=== PATIENT | female | born 2000 | race Caucasian/White ===

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

== ENCOUNTER → 2022-01-07 | Outpatient (CLI) | payer BC ==
[~2022-01-07] MED LIST changes: +BARIUM for suspension 96% w/w (Vanilla Silq Medium Density) PO ONE; +BARIUM for suspension 98% w/w (Vanilla Silq High Density) PO ONE
--- NOTE | 2022-01-07 12:45 | Diagnostic Imaging Report ---
INDICATION: Status post hiatal hernia repair in May 2021. Patient reports difficulty eating as well as a 60 pound weight loss. TECHNIQUE: The patient ingested effervescent crystals as well as thin and thick barium and imaging over the esophagus was performed in multiple obliquities. A total of 1.3 minutes of fluoroscopic time was utilized. 40 images were obtained. FINDINGS: The preliminary radiograph over the chest is unremarkable. The esophagus has a smooth contour. No mass or stricture is identified. There appear to be post operative changes from hiatal hernia repair. Contrast passes freely into the stomach without evidence of obstruction. No gastroesophageal reflux was demonstrated. The stomach is unremarkable. IMPRESSION: Post operative changes. The study is otherwise unremarkable. Dictated by: Dictated on workstation # [id number]
== END ==
LOC: RAD 11:00
PROVIDERS: ATTEND Pediatrics
DX: R13.14 Dysphagia, pharyngoesophageal phase (principal); R63.30 Feeding difficulties, unspecified; R63.4 Abnormal weight loss; Z98.890 Other specified postprocedural states
CPT/HCPCS: 74220

== ENCOUNTER → 2022-01-25 | Outpatient (CLI) | payer BC ==
[~2022-01-25] MED LIST changes: -BARIUM for suspension 96% w/w (Vanilla Silq Medium Density) PO ONE; -BARIUM for suspension 98% w/w (Vanilla Silq High Density) PO ONE
--- NOTE | 2022-01-25 11:48 | Diagnostic Imaging Report ---
INDICATION: Nausea and vomiting. FINDINGS: 1.04 mCi tech 99M cervical colloid was mixed with eggs and taken orally. FINDINGS: There is good uptake noted in the stomach on immediate films. Gastric emptying shows 44% at 1 hour, 81% at 2 hours, 86% at 3 hours and 90% at 4 hours. Linear fit T1 half is 113 minutes. IMPRESSION: Gastric emptying study is considered within normal range though is at the higher limit of time for emptying. Dictated by: Dictated on workstation # [id number]
== END ==
LOC: CARD 07:00
PROVIDERS: ATTEND Pediatrics
DX: R11.2 Nausea with vomiting, unspecified (principal)
CPT/HCPCS: 78264; A9541

== ENCOUNTER 2022-02-14 17:40 | Emergency (ER) | payer BC ==
[~2022-02-14] VITALS: Ht 175.3 cm; Wt 52.2 kg
--- NOTE | 2022-02-14 18:13 | ED Chest Pain ---
General Chief Complaint: Cardiac/General Problems Stated Complaint: CHEST PAIN Nursing Triage Note: PT AMB TO [facility] 10 WITH COMPLAINT OF HEART POUNDING. STATES HAD THIS HAPPEN LAST WEEK AND WENT TO [facility]. IS SCHEDULED FOR HEART MONITOR February. STATES SHE WAS TOLD SHE HAD ECTOPIC HEARTBEAT. PT IS VERY ANXIOUS AND UPSET. STATES SHE WAS AT WORK WHEN THEY HAPPENED. STATES SHE FEELS BRAIN FOG. Source: patient Exam Limitations: no limitations History of Present Illness Date Seen by Provider: Feb 14, 2022 Time Seen by Provider: 18:10 Initial Comments Patient is a 21-year-old female who presents ED with chest pressure and heart palpitations. Symptoms over the past 1 to 2 weeks. Chest pressure is intermittent but feels this constant heart skipping. Described as skipping beats. She states her heart rate races to over 100 and then as low as 40 bpm. She went to [facility] last week and states they were concerned for ectopic hear beat and is scheduled for a Holter monitor on the . She states she feels nauseous.vomiting. Shortness of breath with the symptoms. History of ADHD and has been intermittently taking her clonidine. She states her blood pressure has been running low. Symptoms became worse today while working. Denies history of thyroid issues. No excessive energy drink or caffeine use. Denies any drug use or alcohol use. History of hiatal hernia surgery. Denies fever, chills, headache, dizziness, visual changes. Patient tearful here in the ED. Allergies and Home Medications Allergies Coded Allergies: No Known Drug Allergies (Verified , 10/15/21) Patient Home Medication List Home Medication List Reviewed: Yes Cephalexin (Cephalexin) 500 Mg Tablet, 500 MG PO BID Prescribed by: KELLY WATT on 02/14/222055 Clonidine HCl (Clonidine HCl) 0.1 Mg Tablet, 0.1 MG PO DAILY, (Reported) Entered as Reported by: MEÑO PINO on 11/13/20 115 Fluconazole (Diflucan) 150 Mg Tablet, 150 MG PO ONCE Prescribed by: KELLY WATT on 02/14/222055 Hydrocodone/Acetaminophen (Hydrocodon-Acetamin 7.5-325/15 ML) 15 Ml Solution, 1.5 TSP PO Q4H Prescribed by: CRISTELA CALVERT on 06/27/21 013 Norethindrone-E.estradiol-Iron (Taytulla 1 mg-20 Mcg Capsule) 1 Each Capsule, 1 EACH PO DAILY, (Reported) Entered as Reported by: MIKE VALDIVIA on 05/20/21 1036 Ondansetron (Ondansetron Odt) 8 Mg Tab.rapdis, 8 MG PO Q6H Prescribed by: CRISTELA CALVERT on 06/27/21 013 Pantoprazole Sodium (Protonix) 40 Mg Tablet.dr, 40 MG PO DAILY Prescribed by: MIRNA WHITE on 11/18/20 1132 Pantoprazole Sodium (Protonix) 40 Mg Granpkt.dr, 40 MG PO DAILY Prescribed by: CRISTELA CALVERT on 06/27/21 013 Sertraline HCl (Sertraline HCl) 100 Mg Tablet, 100 MG PO DAILY, (Reported) Entered as Reported by: MEÑO PINO on 11/13/20 1152 Sucralfate (Carafate) 1 Gm/10 Ml Oral.susp, 1 GM PO QIDACHS Prescribed by: CRISTELA CALVERT on 06/27/21 013 Tramadol HCl (Tramadol HCl) 50 Mg Tablet, 50-100 MG PO 4-6 PRN for PAIN-MODERATE (5-7) Prescribed by: TORRES MEADE on 05/28/21 1635 Review of Systems Review of Systems Constitutional: No chills, No diaphoresis, No malaise, No weakness EENTM: No Blurred Vision, No Eye Pain Respiratory: Denies Cough, Denies Orthopnea; Shortness of Air Cardiovascular: Chest Pain, Irregular Heart Rate Gastrointestinal: Denies Abdomen Distended, Denies Abdominal Pain, Denies Blood Streaked Stools, Denies Diarrhea, Denies Difficulty Swallowing; Nausea; Denies Poor Appetite, Denies Vomiting Genitourinary: Denies Burning, Denies Discharge, Denies Flank Pain, Denies Urgency Skin: No change in color, No change in hair/nails All Other Systems Reviewed Negative Unless Noted: Yes Past Cqueeto-Mxvebq-Zbivpa Hx Patient Social History Tobacco Use?: No Use of E-Cig and/or Vaping dev: No Substance use?: No Alcohol Use?: No Pt feels they are or have been: No Immunizations Up To Date Tetanus Booster (TDap): Less than 5yrs PED Vaccines UTD: Yes First/Initial COVID19 Vaccinat: JANUARY 2021 Second COVID19 Vaccination Rony: JANUARY 2021 Third COVID19 Vaccination Date: JANUARY 2021 Seasonal Allergies Seasonal Allergies: Yes Past Medical History Surgery/Hospitalization HX: SKULL SURGERY AT 6 MONTHS OF AGE--FOR PREMATURE CLOSURE OF FONTANELLESLAP ARJUN FUNDOPLICATION 05/27/[address] WHITE Surgeries: Yes (SKULL, DENTAL, FX ARM,LAP ARJUN) Abdominal, Neurological Respiratory: No Cardiac: No Neurological: No Female Reproductive Disorders: Endometriosis, Ovarian Cyst Genitourinary: No Gastrointestinal: Yes (N&V; LAP ARJUN 05/27/21) Gastroesophageal Reflux, Hiatal Hernia Musculoskeletal: No Endocrine: No HEENT: No Cancer: No Psychosocial: Yes ADD/ADHD, Anxiety, Depression Integumentary: No Blood Disorders: No Family Medical History Cardiovascular disease Diabetes mellitus Neoplasm No Pertinent Family Hx, Asthma, Heart Disease NONE Physical Exam Vital Signs Vital Signs - First Documented 02/14/22 17:41 Pulse 121 Resp 11 B/P (MAP) 119/86 (97) Pulse Ox 97 O2 Delivery Room Air Capillary Refill : Less Than 3 Seconds Height, Weight, BMI Height: 5'7.00" Weight: 165lbs. 8.0oz. 75.127341bp; 16.00 BMI Method:Stated General Appearance: No Apparent Distress, WD/WN HEENT: PERRL/EOMI, TMs Normal, Normal ENT Inspection, Pharynx Normal Neck: Full Range of Motion, Normal Inspection, Non Tender, Supple Respiratory: Chest Non Tender, Lungs Clear, Normal Breath Sounds, No Accessory Muscle Use Cardiovascular: Regular Rate, Rhythm, No Edema, No Gallop, No JVD, No Murmur Gastrointestinal: Normal Bowel Sounds, No Organomegaly, No Pulsatile Mass, Non Tender Extremity: Normal Capillary Refill, Normal Inspection, Normal Range of Motion, Non Tender Neurologic/Psychiatric: Alert, Oriented x3, No Motor/Sensory Deficits, Normal Mood/Affect Skin: Normal Color, Warm/Dry Progress/Results/Core Measures Results/Orders Lab Results Laboratory Tests Test 02/14/22 18:29 02/14/22 19:18 Range/Units White Blood Count 8.0 4.3-11.0 10^3/uL Red Blood Count 4.11 3.80-5.11 10^6/uL Hemoglobin 12.9 11.5-16.0 g/dL Hematocrit 38 35-52 % Mean Corpuscular Volume 93 80-99 fL Mean Corpuscular Hemoglobin 31 25-34 pg Mean Corpuscular Hemoglobin Concent 34 32-36 g/dL Red Cell Distribution Width 12.7 10.0-14.5 % Platelet Count 238 130-400 10^3/uL Mean Platelet Volume 10.0 9.0-12.2 fL Immature Granulocyte % (Auto) 0 % Neutrophils (%) (Auto) 56 42-75 % Lymphocytes (%) (Auto) 34 12-44 % Monocytes (%) (Auto) 8 0-12 % Eosinophils (%) (Auto) 2 0-10 % Basophils (%) (Auto) 0 0-10 % Neutrophils # (Auto) 4.5 1.8-7.8 10^3/uL Lymphocytes # (Auto) 2.7 1.0-4.0 10^3/uL Monocytes # (Auto) 0.7 0.0-1.0 10^3/uL Eosinophils # (Auto) 0.1 0.0-0.3 10^3/uL Basophils # (Auto) 0.0 0.0-0.1 10^3/uL Immature Granulocyte # (Auto) 0.0 0.0-0.1 10^3/uL D-Dimer <= 0.27 0.00-0.49 UG/ML Sodium Level 141 135-145 MMOL/L Potassium Level 3.9 3.6-5.0 MMOL/L Chloride Level 107 98-107 MMOL/L Carbon Dioxide Level 20 L 21-32 MMOL/L Anion Gap 14 5-14 MMOL/L Blood Urea Nitrogen 19 H 7-18 MG/DL Creatinine 0.81 0.60-1.30 MG/DL Estimat Glomerular Filtration Rate 107 BUN/Creatinine Ratio 23 Glucose Level 85 70-105 MG/DL Calcium Level 8.9 8.5-10.1 MG/DL Corrected Calcium 8.8 8.5-10.1 MG/DL Magnesium Level 1.8 1.6-2.4 MG/DL Total Bilirubin 0.3 0.1-1.0 MG/DL Aspartate Amino Transf (AST/SGOT) 18 5-34 U/L Alanine Aminotransferase (ALT/SGPT) 18 0-55 U/L Alkaline Phosphatase 49 40-136 U/L Troponin I < 0.028 <0.028 NG/ML B-Type Natriuretic Peptide < 10.0 <100.0 PG/ML Total Protein 6.5 6.4-8.2 GM/DL Albumin 4.1 3.2-4.5 GM/DL Lipase 89 H 8-78 U/L Thyroid Stimulating Hormone (TSH) 0.78 0.35-4.94 UIU/ML Urine Color YELLOW Urine Clarity CLOUDY Urine pH 5.5 5-9 Urine Specific [place] >=1.030 1.016-1.022 Urine Protein 2+ H NEGATIVE Urine Glucose (UA) NEGATIVE NEGATIVE Urine Ketones TRACE H NEGATIVE Urine Nitrite NEGATIVE NEGATIVE Urine Bilirubin NEGATIVE NEGATIVE Urine Urobilinogen 0.2 < = 1.0 MG/DL Urine Leukocyte Esterase NEGATIVE NEGATIVE Urine RBC (Auto) 3+ H NEGATIVE Urine RBC 5-10 H /HPF Urine WBC 2-5 /HPF Urine Squamous Epithelial Cells 5-10 /HPF Urine Crystals PRESENT H /LPF Urine Calcium Oxalate Crystals RARE H /LPF Urine Amorphous Sediment MOD GAIL URATES H /LPF Urine Bacteria MODERATE H /HPF Urine Casts PRESENT /LPF Urine Hyaline Casts 0-2 H /LPF Urine Mucus LARGE H /LPF Urine Yeast MODERATE H /HPF Urine Culture Indicated YES Urine Test NEGATIVE NEGATIVE Urine Opiates Screen NEGATIVE NEGATIVE Urine Oxycodone Screen NEGATIVE NEGATIVE Urine Methadone Screen NEGATIVE NEGATIVE Urine Propoxyphene Screen NEGATIVE NEGATIVE Urine Barbiturates Screen NEGATIVE NEGATIVE Ur Tricyclic Antidepressants Screen NEGATIVE NEGATIVE Urine Phencyclidine Screen NEGATIVE NEGATIVE Urine Amphetamines Screen NEGATIVE NEGATIVE Urine Methamphetamines Screen NEGATIVE NEGATIVE Urine Benzodiazepines Screen NEGATIVE NEGATIVE Urine Cocaine Screen NEGATIVE NEGATIVE Urine Cannabinoids Screen POSITIVE H NEGATIVE My Orders Orders - CHACHA HONG Hcg,Qualitative Urine (02/14/22 18:09) Cbc With Automated Diff (02/14/22 18:09) Comprehensive Metabolic Panel (02/14/22 18:09) Lipase (02/14/22 18:09) Magnesium (02/14/22 18:09) Fibrin Degradation Products (02/14/22 18:09) Chest 1 View, Ap/Pa Only (02/14/22 18:09) Troponin I [place] (02/14/22 18:09) Bnp [place] (02/14/22 18:09) Thyroid Stimulating Hormone (02/14/22 18:10) Drug Screen Stat (Urine) (02/14/22 18:22) Vital Signs/I&O 02/14/22 02/14/22 17:41 21:10 Pulse 121 62 Resp 11 14 B/P (MAP) 119/86 (97) 108/66 Pulse Ox 97 98 O2 Delivery Room Air Room Air Blood Pressure Mean: 97 Comment Sinus rhythm, ST elevation probable normal early repolarization pattern, 99 bpm, QRS duration 91 MS, QTc 446 MS Departure Communication (Admissions) Patient EKG 99 bpm. EKG concerning for repolarization abnormality. Chest pressure with heart palpitations. She states heart palpitation is what she notices with this chest pressure. She feels like her heart is skipping a beat. Symptoms over the past 1 to 2 weeks. No family history of sudden cardiac . No murmur noted. history of hiatal hernia with complications. According to mother patient has been having 70 pound weight loss over the past 7 months. Increased stress vwith depression accorind to mother. Patient lab work was otherwise reassuring. Negative D-dimer and TSH. She denies excessive energy use alcohol use or drug use. Patient Was positive for marijuana. Chest x-ray was negative for pneumonia, pneumothorax. She has no upper abdominal tenderness. Slight elevated lipase. According mother mother's concern for her weight changes. Currently being managed by her primary care physician for this. Had a recent upper GI exam that was unremarkable according to mother. Trying to get scheduled to follow-up with [facility]. Reports stretching of the esophagus or reversal . Concerning for her weight changes which could be contributing to her symptoms. Concern for her eating habits and current mental state. This may be contributing to her symptoms. She denies vomiting with eating. Will provide outpatient order for Holter monitor for the heart palpitations. Potential ectopic beat versus proximal SVT. She states her heart feels like it is jumping. Walking heart rate was 110 with sinus rhythm. No abnormal heart rhythm here while on the monitor. No A. fib, a flutter. No known cardiac history. Discussed these results with father as well as mother. If any worsening symptoms I strongly recommend return back to ED for further evaluation. Impression Primary Impression: Chest pain Additional Impression: Heart palpitations Disposition: 01 HOME, SELF-CARE Condition: Stable Departure-Patient Inst. Referrals: BIGG MCKENNA MD, ROYLAN J MD (PCP/Family) Primary Care Physician Patient Instructions: Palpitations Scripts Fluconazole (Diflucan) 150 Mg Tablet 150 MG PO ONCE, #1 TAB Prov: CHACHA HONG 02/14/22 Cephalexin (Cephalexin) 500 Mg Tablet 500 MG PO BID for 7 Days, #14 TAB Prov: CHACHA HONG 02/14/22 Work/School Note: Work Release Form Date Seen in the Emergency Department: Feb 14, 2022 Return to Work: Feb 18, 2022 CHACHA HONG Feb 14, 2022 18:13
[2022-02-14 18:36] LABS: BASOPHILS % (AUTO) 0 % (0-10); EOSINOPHILS # (AUTO) 0.1 10^3/uL (0.0-0.3); EOSINOPHILS % (AUTO) 2 % (0-10); HEMATOCRIT 38 % (35-52); HEMOGLOBIN 12.9 g/dL (11.5-16.0); LYMPHOCYTES # (AUTO) 2.7 10^3/uL (1.0-4.0); LYMPHOCYTES % (AUTO) 34 % (12-44); MEAN CORPUSCULAR HEMOGLOBIN 31 pg (25-34); MEAN CORPUSCULAR HGB CONC 34 g/dL (32-36); MEAN CORPUSCULAR VOLUME 93 fL (80-99); MONOCYTES # (AUTO) 0.7 10^3/uL (0.0-1.0); MONOCYTES % (AUTO) 8 % (0-12); NEUTROPHILS # (AUTO) 4.5 10^3/uL (1.8-7.8); NEUTROPHILS % (AUTO) 56 % (42-75); PLATELET COUNT 238 10^3/uL (130-400)
[2022-02-14 18:50] LABS: ALBUMIN 4.1 GM/DL (3.2-4.5)
[2022-02-14 18:51] LABS: CHLORIDE 107 MMOL/L (98-107); POTASSIUM 3.9 MMOL/L (3.6-5.0); SODIUM 141 MMOL/L (135-145)
[2022-02-14 18:52] LABS: CALCIUM 8.9 MG/DL (8.5-10.1)
[2022-02-14 18:53] LABS: GLUCOSE 85 MG/DL (70-105); TOTAL PROTEIN 6.5 GM/DL (6.4-8.2)
[2022-02-14 18:54] LABS: CARBON DIOXIDE 20 MMOL/L (21-32)
[2022-02-14 18:55] LABS: BILIRUBIN,TOTAL 0.3 MG/DL (0.1-1.0)
[2022-02-14 18:56] LABS: ALKALINE PHOSPHATASE 49 U/L (40-136)
[2022-02-14 18:57] LABS: CREATININE SERUM 0.81 MG/DL (0.60-1.30); GFR ESTIMATED 107
[2022-02-14 18:58] LABS: BUN/CREATININE RATIO 23
[2022-02-14 18:59] LABS: MAGNESIUM 1.8 MG/DL (1.6-2.4)
[2022-02-14 19:00] LABS: ALANINE AMINOTRANSFERASE 18 U/L (0-55); LIPASE 89 U/L (8-78)
[2022-02-14 19:27] LABS: BILIRUBIN,URINE NEGATIVE (NEGATIVE); CLARITY,URINE CLOUDY; COLOR,URINE YELLOW; GLUCOSE, URINE (UA) NEGATIVE (NEGATIVE); KETONES,URINE TRACE (NEGATIVE); LEUKOCYTE ESTERASE ,URINE NEGATIVE (NEGATIVE); NITRITE,URINE NEGATIVE (NEGATIVE); PH,URINE 5.5 (5-9); PROTEIN,URINE 2+ (NEGATIVE)
[2022-02-14 19:44] LABS: AMPHETAMINE SCREEN, URINE NEGATIVE (NEGATIVE); BARBITURATE SCREEN URINE NEGATIVE (NEGATIVE); BENZODIAZEPINES SCREEN URINE NEGATIVE (NEGATIVE); CANNABINOID SCREEN, URINE POSITIVE (NEGATIVE); COCAINE SCREEN URINE NEGATIVE (NEGATIVE); HCG,QUALITATIVE URINE NEGATIVE (NEGATIVE); METHADONE STAT NEGATIVE (NEGATIVE); METHAMPHETAMINE SCREEN URINE S NEGATIVE (NEGATIVE); OPIATE SCREEN URINE NEGATIVE (NEGATIVE); OXYCODONE STAT NEGATIVE (NEGATIVE); PROPOXYPHENE STAT NEGATIVE (NEGATIVE); TRICYCLIC ANTIDEPRESSANTS SCRE NEGATIVE (NEGATIVE)
[2022-02-14 20:15] LABS: AMORPHOUS SEDIMENT,UR MOD AMOR URATES /LPF; BACTERIA,URINE MODERATE /HPF; CALCIUM OXALATE CRYSTALS,UR RARE /LPF; HYALINE CASTS, URINE 0-2 /LPF; YEAST,URINE MODERATE /HPF
--- NOTE | 2022-02-14 20:15 | Diagnostic Imaging Report ---
INDICATION: Heart pounding FINDINGS: Single view of the chest demonstrates clear lungs bilaterally. The heart is normal. There is no pneumothorax. The osseous structures normal. IMPRESSION: Negative chest Dictated by: Dictated on workstation # [id number]
[2022-02-14] MEDS ORDERED: CEPH500T PO (20:56)
[2022-02-14] MEDS ORDERED: FLUC150T PO (20:56)
[2022-02-14 21:10] VITALS: BP 108/66
== END 2022-02-14 21:10 | disposition home or self-care (01) ==
LOC: EDUNIT# 17:40 → ER 17:43
DX: R00.2 Palpitations (principal); F90.9 Attention-deficit hyperactivity disorder, unspecified type
CPT/HCPCS: 36415; 71045; 80053; 80306; 81000; 83690; 83735; 83880; 84443; 84484; 84703; 85025; 85379; 87088; 93005

== ENCOUNTER → 2022-02-16 | Outpatient (CLI) | payer BC ==
[~2022-02-16] MED LIST changes: +CEPH500T PO; +FLUC150T PO
== END ==
LOC: CARD 12:00
PROVIDERS: ATTEND Physician Assistant
DX: R00.2 Palpitations (principal)
CPT/HCPCS: 93225; 93226

== ENCOUNTER 2023-08-25 22:40 | Emergency (ER) | payer MEDICAID ==
[2023-08-25 23:04] LABS: BASOPHILS % (AUTO) 0 % (0-10); EOSINOPHILS # (AUTO) 0.1 10^3/uL (0.0-0.3); EOSINOPHILS % (AUTO) 1 % (0-10); HEMATOCRIT 38 % (35-52); HEMOGLOBIN 12.9 g/dL (11.5-16.0); LYMPHOCYTES # (AUTO) 2.8 10^3/uL (1.0-4.0); LYMPHOCYTES % (AUTO) 19 % (12-44); MEAN CORPUSCULAR HEMOGLOBIN 31 pg (25-34); MEAN CORPUSCULAR HGB CONC 34 g/dL (32-36); MEAN CORPUSCULAR VOLUME 91 fL (80-99); MEAN PLATELET VOLUME 9.8 fL (9.0-12.2); MONOCYTES # (AUTO) 0.8 10^3/uL (0.0-1.0); MONOCYTES % (AUTO) 5 % (0-12); NEUTROPHILS # (AUTO) 11.4 10^3/uL (1.8-7.8); NEUTROPHILS % (AUTO) 75 % (42-75); PLATELET COUNT 260 10^3/uL (130-400); WHITE BLOOD COUNT 15.1 10^3/uL (4.3-11.0)
--- NOTE | 2023-08-25 23:14 | ED Cardiac General ---
History of Present Illness General Chief Complaint: Cardiac/General Problems Stated Complaint: HEART RACING, SKIPPING BEATS, SOB, 11 WEEKS PREG Nursing Triage Note: TO ED VIA POV AND AMBULATORY TO ROOM 6 WITH C/O FEELING LIKE HEART IS "SKIPPING BEATS" ALSO FELT LIKE HEART WAS "POUNDING" AND "IT DIDN'T SOUND RIGHT". VERY TEARFUL DURING TRIAGE. PT STATES THIS HAPPENED APPROX 2 YEARS AGO AND WORE "SHORT TERM HEART MONITOR" AND WAS TOLD IT WAS TACHYCARDIA. DID NOT SEE PACKAGING LINE OPERATOR AT THAT TIME. Source: patient History of Present Illness Date Seen by Provider: Aug 25, 2023 Time Seen by Provider: 22:58 Initial Comments PT ARRIVES VIA POV FROM HOME WITH MALE C/O PALPITATIONS--FEELS LIKE HER HEART IS "SKIPPING BEATS" SYMPTOMS ONGOING FOR SEVERAL DAYS, NO DIFFERENT TONIGHT, HAS NOT SOUGHT CARE UNTIL TONIGHT ( MONDAY NIGHT ) STATES IT FEELS LIKE HER HEART IS POUNDING AND "DIDN'T SOUND RIGHT" C/O MILD SHORTNESS OF BREATH NO CHEST PAIN NO DIZZINESS OR SYNCOPE NO COUGH, FEVER OR RECENT ILLNESS NO SWELLING IN LEGS/FEET OR PAIN IN CALVES HAD SAME A COUPLE OF YEARS AGO, AND WORE A HOLTER MONITOR--DID NOT SEE A PACKAGING LINE OPERATOR SHE HAS CONTINUED TO HAVE THEM OFF AND ON FOR THE LAST 2 YEARS, BUT HAS BEEN WORSE FOR THE LAST SEVERAL DAYS DENIES ANY CAFFEINE OR STIMULANT USE PT IS ON EFFEXOR FOR DEPRESSION/ANXIETY, SHE ALSO HAS ADHD SHE IS 11 WEEKS , HAS APPOINTMENT WITH OB AT [facility] THIS COMING WEEK. LMP 06/18/23 PT IS AB 0 SHE HAS HAD ONGOING NAUSEA/VOMITING/DIARRHEA--HAS HAD ARJUN FUNDOPLICATION, SO NO ACTUAL EMESIS, ONLY DRY HEAVES. 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 PCP: [facility] Allergies and Home Medications Allergies Coded Allergies: No Known Drug Allergies (Verified , 10/15/21) Patient Home Medication List Cephalexin (Cephalexin) 500 Mg Tablet, 500 MG PO BID Prescribed by: KELLY WATT on 02/14/222055 Clonidine HCl (Clonidine HCl) 0.1 Mg Tablet, 0.1 MG PO DAILY, (Reported) Entered as Reported by: MEÑO PINO on 11/13/20 115 Fluconazole (Diflucan) 150 Mg Tablet, 150 MG PO ONCE Prescribed by: KELLY WATT on 02/14/222055 Hydrocodone/Acetaminophen (Hydrocodon-Acetamin 7.5-325/15 ML) 15 Ml Solution, 1.5 TSP PO Q4H Prescribed by: CRISTELA CALVERT on 06/27/21134 Norethindrone-E.estradiol-Iron (Taytulla 1 mg-20 Mcg Capsule) 1 Each Capsule, 1 EACH PO DAILY, (Reported) Entered as Reported by: MIKE VALDIVIA on 05/20/21 103 Ondansetron (Ondansetron Odt) 8 Mg Tab.rapdis, 8 MG PO Q6H Prescribed by: CRISTELA CALVERT on 06/27/21134 Pantoprazole Sodium (Protonix) 40 Mg Tablet.dr, 40 MG PO DAILY Prescribed by: MIRNA WHITE on 11/18/20 113 Pantoprazole Sodium (Protonix) 40 Mg Granpkt.dr, 40 MG PO DAILY Prescribed by: CRISTELA CALVERT on 06/27/21134 Sertraline HCl (Sertraline HCl) 100 Mg Tablet, 100 MG PO DAILY, (Reported) Entered as Reported by: MEÑO PINO on 11/13/20 115 Sucralfate (Carafate) 1 Gm/10 Ml Oral.susp, 1 GM PO QIDACHS Prescribed by: CRISTELA CALVERT on 06/27/21134 Tramadol HCl (Tramadol HCl) 50 Mg Tablet, 50-100 MG PO 4-6 PRN for PAIN-MODERATE (5-7) Prescribed by: TORRES MEADE on 05/28/21 1635 Review of Systems Review of Systems Constitutional: no symptoms reported EENTM: No Symptoms Reported Respiratory: See HPI Cardiovascular: See HPI Gastrointestinal: No Symptoms Reported Genitourinary: See HPI Musculoskeletal: no symptoms reported Skin: no symptoms reported Psychiatric/Neurological: Anxiety Endocrine: No Symptoms Reported Hematologic/Lymphatic: No Symptoms Reported Past Ouwkqmz-Jeafxb-Vbxbxy Hx Patient Social History Smoking Status: Former Smoker Additional substance use comme: PAST MARIJUANA Immunizations Up To Date Tetanus Booster (TDap): Less than 5yrs PED Vaccines UTD: Yes Influenza Vaccine Up-to-Date: Yes; Up-to-Date First/Initial COVID19 Vaccinat: JANUARY 2021 Second COVID19 Vaccination Rony: JANUARY 2021 Third COVID19 Vaccination Date: JANUARY 2021 Seasonal Allergies Seasonal Allergies: Yes Past Medical History Surgery/Hospitalization HX: SKULL SURGERY AT 6 MONTHS OF AGE--FOR PREMATURE CLOSURE OF FONTANELLESLAP ARJUN FUNDOPLICATION 05/27/[address] WHITE Surgeries: Yes (SKULL, DENTAL, FX ARM,LAP ARJUN) Abdominal, Neurological Respiratory: No Cardiac: Yes Palpitations Neurological: No : Yes Last Menstrual Period: Jun 18, 2023 Reproductive Disorders: Yes Female Reproductive Disorders: Menstrual Problems, Endometriosis, Ovarian Cyst Genitourinary: No Gastrointestinal: Yes (N&V; LAP ARJUN 05/27/21) Gastroesophageal Reflux, Hiatal Hernia Musculoskeletal: No Endocrine: No HEENT: No Cancer: No Psychosocial: Yes ADD/ADHD, Anxiety, Depression Integumentary: No Blood Disorders: No Family Medical History Cardiovascular disease Diabetes mellitus Neoplasm No Pertinent Family Hx, Asthma, Heart Disease NONE Physical Exam Vital Signs Vital Signs - First Documented 08/25/23 22:49 Temp 36.8 Pulse 118 Resp 20 B/P (MAP) 132/98 (109) Pulse Ox 99 O2 Delivery Room Air Capillary Refill : Less Than 3 Seconds Height, Weight, BMI Height: 5'7.00" Weight: 165lbs. 8.0oz. 75.134936pi; 16.00 BMI Method:Stated General Appearance: No Apparent Distress, WD/WN, Anxious, Thin, Other (TEARFUL ON ARRIVAL) HEENT: PERRL/EOMI, TMs Normal Neck: Normal Inspection Respiratory: Normal Breath Sounds, No Accessory Muscle Use Cardiovascular: Regular Rate, Rhythm (OCCASIONAL ECTOPY--C/W PVC'S ON MONITOR), No Edema, No JVD, No Murmur, Normal Peripheral Pulses Gastrointestinal: Normal Bowel Sounds, No Organomegaly, Non Tender, Soft Extremity: Normal Capillary Refill, Normal Inspection, Normal Range of Motion, Non Tender, No Calf Tenderness, No Pedal Edema Neurologic/Psychiatric: Alert, Oriented x3, No Motor/Sensory Deficits, 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 Norm as Tested, Other (ANXIOUS) Skin: Normal Color, Warm/Dry Progress/Results/Core Measures Results/Orders Lab Results Laboratory Tests Test 08/25/23 22:55 08/25/23 23:10 Range/Units White Blood Count 15.1 H 4.3-11.0 10^3/uL Red Blood Count 4.16 3.80-5.11 10^6/uL Hemoglobin 12.9 11.5-16.0 g/dL Hematocrit 38 35-52 % Mean Corpuscular Volume 91 80-99 fL Mean Corpuscular Hemoglobin 31 25-34 pg Mean Corpuscular Hemoglobin Concent 34 32-36 g/dL Red Cell Distribution Width 13.7 10.0-14.5 % Platelet Count 260 130-400 10^3/uL Mean Platelet Volume 9.8 9.0-12.2 fL Immature Granulocyte % (Auto) 0 % Neutrophils (%) (Auto) 75 42-75 % Lymphocytes (%) (Auto) 19 12-44 % Monocytes (%) (Auto) 5 0-12 % Eosinophils (%) (Auto) 1 0-10 % Basophils (%) (Auto) 0 0-10 % Neutrophils # (Auto) 11.4 H 1.8-7.8 10^3/uL Lymphocytes # (Auto) 2.8 1.0-4.0 10^3/uL Monocytes # (Auto) 0.8 0.0-1.0 10^3/uL Eosinophils # (Auto) 0.1 0.0-0.3 10^3/uL Basophils # (Auto) 0.0 0.0-0.1 10^3/uL Immature Granulocyte # (Auto) 0.1 0.0-0.1 10^3/uL Neutrophils % (Manual) 77 % Lymphocytes % (Manual) 18 % Monocytes % (Manual) 2 % Reactive Lymphocytes 3 % Erythrocyte Sedimentation Rate 15 0-20 MM/HR Prothrombin Time 13.3 12.2-14.7 SEC INR Comment 1.0 0.8-1.4 Activated Partial Thromboplast Time 28 24-35 SEC D-Dimer 0.20 0.00-0.49 UG/ML Sodium Level 138 135-145 MMOL/L Potassium Level 3.4 L 3.6-5.0 MMOL/L Chloride Level 109 H 98-107 MMOL/L Carbon Dioxide Level 19 L 21-32 MMOL/L Anion Gap 10 5-14 MMOL/L Blood Urea Nitrogen 10 7-18 MG/DL Creatinine 0.76 0.60-1.30 MG/DL Estimat Glomerular Filtration Rate 115 BUN/Creatinine Ratio 13 Glucose Level 102 70-105 MG/DL Calcium Level 9.4 8.5-10.1 MG/DL Corrected Calcium 9.2 8.5-10.1 MG/DL Magnesium Level 2.1 1.6-2.4 MG/DL Total Bilirubin 0.3 0.1-1.0 MG/DL Aspartate Amino Transf (AST/SGOT) 25 5-34 U/L Alanine Aminotransferase (ALT/SGPT) 19 0-55 U/L Alkaline Phosphatase 57 40-136 U/L Total Creatine Kinase 63 29-168 U/L Creatine Kinase MB 0.6 <6.6 NG/ML Myoglobin 16.8 10.0-92.0 NG/ML Troponin I < 0.028 <0.028 NG/ML C-Reactive Protein High Sensitivity 0.05 0.00-0.50 MG/DL B-Type Natriuretic Peptide 17.0 <100.0 PG/ML Total Protein 7.3 6.4-8.2 GM/DL Albumin 4.2 3.2-4.5 GM/DL TSH [place] Testing 0.99 0.35-4.94 UIU/ML Human Chorionic Gonadotropin, Quant [id number] H <5 MIU/ML Serum Test, Qualitative POSITIVE NEGATIVE Serum Alcohol < 10 <10 MG/DL Urine Color ORANGE Urine Clarity CLEAR Urine pH 5.0 5-9 Urine Specific [place] >=1.030 1.016-1.022 Urine Protein 3+ H NEGATIVE Urine Glucose (UA) NEGATIVE NEGATIVE Urine Ketones TRACE H NEGATIVE Urine Nitrite POSITIVE H NEGATIVE Urine Bilirubin 1+ H NEGATIVE Urine Urobilinogen 0.2 < = 1.0 MG/DL Urine Leukocyte Esterase NEGATIVE NEGATIVE Urine RBC (Auto) 3+ H NEGATIVE Urine RBC 5-10 H /HPF Urine WBC 2-5 /HPF Urine Squamous Epithelial Cells 5-10 /HPF Urine Crystals NONE /LPF Urine Bacteria LARGE H /HPF Urine Casts NONE /LPF Urine Mucus MODERATE H /LPF Urine Yeast FEW H /HPF Urine Culture Indicated YES Urine Opiates Screen NEGATIVE NEGATIVE Urine Oxycodone Screen NEGATIVE NEGATIVE Urine Methadone Screen NEGATIVE NEGATIVE Urine Propoxyphene Screen NEGATIVE NEGATIVE Urine Barbiturates Screen NEGATIVE NEGATIVE Ur Tricyclic Antidepressants Screen NEGATIVE NEGATIVE Urine Phencyclidine Screen NEGATIVE NEGATIVE Urine Amphetamines Screen NEGATIVE NEGATIVE Urine Methamphetamines Screen NEGATIVE NEGATIVE Urine Benzodiazepines Screen NEGATIVE NEGATIVE Urine Cocaine Screen NEGATIVE NEGATIVE Urine Cannabinoids Screen POSITIVE H NEGATIVE My Orders Orders - CRISTELA CALVERT DO Ekg Tracing (08/25/23 22:55) Ed Iv/Invasive Line Start (08/25/23 22:57) O2 (08/25/23 22:57) Monitor-Rhythm Ecg Trace Only (08/25/23:57) Alcohol (08/25/23 22:57) Cbc And Automated Diff (08/25/23:57) Comprehensive Metabolic Panel (08/25/23:57) Creatine Kinase (08/25/23:57) Creatine Kinase Mb (08/25/23:57) Hs C Reactive Protein (08/25/23:57) Fibrin Degradation Products (08/25/23 22:57) Drug Screen Stat (Urine) (08/25/23:57) Hcg,Qualitative Serum (08/25/23:57) Magnesium (08/25/23 22:57) Protime With Inr (08/25/23:57) Partial Thromboplastin Time (08/25/23 22:57) Thyroid Analyzer (08/25/23 22:57) Ua Culture If Indicated (08/25/23:57) Erythrocyte Sedimentation Rate (08/25/23:57) Myoglobin Serum (08/25/23 22:57) Troponin I Edwina (08/25/23 22:57) Bnp Edwina (08/25/23 22:57) Ed Iv/Invasive Line Start (08/25/23 23:05) Lactated Ringers 1,000 Ml (Lactated Ring (08/25/23 23:15) Hcg,Quantitative (08/25/23 23:05) Manual Differential (08/25/23:55) Urine Culture (08/25/23 23:10) Ed Iv/Invasive Line Start (08/26/23 00:01) Lactated Ringers 1,000 Ml (Lactated Ring (08/26/23 00:15) Ceftriaxone Iv/Im (Ceftriaxone Iv/Im) (08/26/23 00:01) Medications Given in ED Current Medications Medications Dose Ordered Sig/Brent Route Start Time Stop Time Status Last Admin Dose Admin Lactated Ringer's 1,000 ml @ 0 mls/hr Q0M ONCE IV 08/25/23 23:15 08/25/23 23:16 DC 08/25/23 23:12 999 MLS/HR Vital Signs/I&O 08/25/23 22:49 Temp 36.8 Pulse 118 Resp 20 B/P (MAP) 132/98 (109) Pulse Ox 99 O2 Delivery Room Air Blood Pressure Mean: 109 Departure Impression Primary Impression: UTI Additional Impressions: PVCs (premature ventricular contractions) Nausea and vomiting during prior to 22 weeks gestation Mild dehydration UTI (urinary tract infection) in in first trimester Disposition: HOME, SELF-CARE Condition: Improved Departure-Patient Inst. Decision time for Depature: 00:05 Referrals: [facility] (PCP/Family) Primary Care Physician Patient Instructions: Dehydration, Adult ED, Morning Sickness ED, Urinary Tract Infection, Adult ED, Ventricular premature beats Add. Discharge Instructions: INCREASE YOUR FLUID INTAKE, ESPECIALLY EQUAL AMOUNTS OF WATER AND GATORADE YOU MAY TAKE TYLENOL FOR PAIN OR FEVER NO MARIJUANA FOLLOW UP WITH OB NEXT WEEK SCHEDULED All discharge instructions reviewed with patient and/or family. Voiced understanding. Scripts Cefdinir (Cefdinir) 300 Mg Capsule 300 MG PO BID, #20 CAP Prov: CRISTELA CALVERT DO 08/26/23 Metoclopramide HCl (Reglan) 10 Mg Tablet 10 MG PO Q6H for Nausea/Vomiting, #10 TAB Prov: CRISTELA CALVERT DO 08/26/23 Doxylamine/Pyridoxine HCl (Sommer Larios 10-10 mg Tablet) 10 Mg-10 Mg Tablet. 2 EACH PO HS, #60 TAB Prov: KRZYSZTOF CALVERTA Ruthie DO 08/26/23 ENRIKEKRZYSZTOFA K DO Aug 25, 2023 23:14
[2023-08-25 23:15] LABS: ALBUMIN 4.2 GM/DL (3.2-4.5); CHLORIDE 109 MMOL/L (98-107); POTASSIUM 3.4 MMOL/L (3.6-5.0); SODIUM 138 MMOL/L (135-145)
[2023-08-25] MEDS ORDERED: LACTATED RINGERS 1,000 ML 1,000 ML IV ONE (23:15)
[2023-08-25 23:16] LABS: CALCIUM 9.4 MG/DL (8.5-10.1); PROTHROMBIN TIME PATIENT 13.3 SEC (12.2-14.7)
[2023-08-25 23:17] LABS: GLUCOSE 102 MG/DL (70-105); TOTAL PROTEIN 7.3 GM/DL (6.4-8.2)
[2023-08-25 23:18] LABS: CARBON DIOXIDE 19 MMOL/L (21-32)
[2023-08-25 23:19] LABS: BILIRUBIN,TOTAL 0.3 MG/DL (0.1-1.0); NEUTROPHILS % (MANUAL) 77 %
[2023-08-25 23:20] LABS: LYMPHOCYTES % (MANUAL) 18 %; MONOCYTES % (MANUAL) 2 %
[2023-08-25 23:21] LABS: ALKALINE PHOSPHATASE 57 U/L (40-136); CREATININE SERUM 0.76 MG/DL (0.60-1.30); GFR ESTIMATED 115
[2023-08-25 23:22] LABS: BUN/CREATININE RATIO 13; ERYTHROCYTE SEDIMENTATION RATE 15 MM/HR (0-20); REACTIVE LYMPHOCYTES 3 %
[2023-08-25 23:24] LABS: ALANINE AMINOTRANSFERASE 19 U/L (0-55); CREATINE KINASE 63 U/L (29-168); MAGNESIUM 2.1 MG/DL (1.6-2.4)
[2023-08-25 23:28] LABS: FIBRIN DEGRADATION PRODUCTS 0.2 UG/ML (0.00-0.49)
[2023-08-25 23:29] LABS: BACTERIA,URINE LARGE /HPF; BILIRUBIN,URINE 1+ (NEGATIVE); CLARITY,URINE CLEAR; COLOR,URINE ORANGE; GLUCOSE, URINE (UA) NEGATIVE (NEGATIVE); KETONES,URINE TRACE (NEGATIVE); LEUKOCYTE ESTERASE ,URINE NEGATIVE (NEGATIVE); NITRITE,URINE POSITIVE (NEGATIVE); PROTEIN,URINE 3+ (NEGATIVE)
[2023-08-25 23:30] LABS: YEAST,URINE FEW /HPF
[2023-08-25 23:32] LABS: CREATINE KINASE MB 0.6 NG/ML (<6.6)
[2023-08-25 23:33] LABS: AMPHETAMINE SCREEN, URINE NEGATIVE (NEGATIVE); BARBITURATE SCREEN URINE NEGATIVE (NEGATIVE); CANNABINOID SCREEN, URINE POSITIVE (NEGATIVE); COCAINE SCREEN URINE NEGATIVE (NEGATIVE); METHADONE STAT NEGATIVE (NEGATIVE); OPIATE SCREEN URINE NEGATIVE (NEGATIVE); OXYCODONE STAT NEGATIVE (NEGATIVE); PROPOXYPHENE STAT NEGATIVE (NEGATIVE); TRICYCLIC ANTIDEPRESSANTS SCRE NEGATIVE (NEGATIVE)
[2023-08-25 23:44] LABS: TSH (THYROID ANALYZER) 0.99 UIU/ML (0.35-4.94)
[2023-08-26] MEDS ORDERED: cefTRIAXone IV/IM 1,000 MG in NS (IVPB) 50 ML 50 ML IV STA (00:01)
[2023-08-26] MEDS ORDERED: DOXY1TAB3 PO (00:08)
[2023-08-26] MEDS ORDERED: CEFD300C3 PO (00:08)
[2023-08-26] MEDS ORDERED: METO-310 PO (00:08)
[2023-08-26] MEDS ORDERED: LACTATED RINGERS 1,000 ML 1,000 ML IV ONE (00:15)
[2023-08-26 00:52] VITALS: BP 110/69
== END 2023-08-26 00:52 | disposition home or self-care (01) ==
LOC: EDUNIT# 22:40 → ER 22:45
DX: O23.41 Unspecified infection of urinary tract in pregnancy, first trimester (principal); O99.611 Diseases of the digestive system complicating pregnancy, first trimester; O99.411 Diseases of the circulatory system complicating pregnancy, first trimester; O21.9 Vomiting of pregnancy, unspecified; N39.0 Urinary tract infection, site not specified; E86.0 Dehydration; I49.3 Ventricular premature depolarization; Z87.891 Personal history of nicotine dependence; Z3A.09 9 weeks gestation of pregnancy
CPT/HCPCS: 80053; 80306; 81000; 82550; 82553; 83735; 83874; 83880; 84443; 84484; 84702; 84703; 85007; 85027; 85379; 85610; 85652; 85730; 86141; 87077; 87088; 87186; 93005; 93041; 96361; 96365; 99284; G0480; 36415; 80320